=== PATIENT | male | born 1940 | race Caucasian/White ===

== ENCOUNTER 2017-07-01 11:54 | Emergency (ER) | payer MEDICARE, BC ==
[2017-07-01] MEDS ORDERED: Sodium Chloride 0.9% 10 ML Syringe FLUSH PRN (13:27)
[2017-07-01 13:47] VITALS: BP 140/61
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
== END 2017-07-01 13:40 ==
LOC: FB.ED 11:54
DX: S06.5X0A Traumatic subdural hemorrhage without loss of consciousness, initial encounter (principal); R00.1 Bradycardia, unspecified; E11.9 Type 2 diabetes mellitus without complications; I10 Essential (primary) hypertension; V87.8XXA Person injured in other specified noncollision transport accidents involving motor vehicle (traffic), initial encounter
CPT/HCPCS: 36415; 70450; 80053; 85025; 85610; 85730; 93005; 99285; J7050

== ENCOUNTER 2024-07-29 08:41 | Day surgery (SDC) | payer BC, MEDICARE ==
[2024-07-29] MEDS ORDERED: fentaNYL 100 MCG/2 ML SDV IV ONE (08:42)
[2024-07-29] MEDS ORDERED: Midazolam 1 MG/ML 2 ML SDV IV ONE (08:42)
[2024-07-29] MEDS ORDERED: Lactated Ringers 1,000 ML IV SCH (09:00)
[2024-07-29] MEDS ORDERED: Sodium Chloride 0.9% 10 ML Syringe FLUSH PRN (09:00)
[2024-07-29 10:06] LABS: GLUCOSE,POC 87 mg/dL (80-116)
[2024-07-29] MEDS: acetaZOLAMIDE 500 MG Cap.ER PO ONE (10:54)
[2024-07-29 12:36] VITALS: BP 117/57; PULSE 48
== END 2024-07-29 11:12 | disposition home or self-care (01) ==
LOC: FB.SDS 08:41
PROVIDERS: ATTEND Ophthalmology
DX: E11.36 Type 2 diabetes mellitus with diabetic cataract (principal); H26.9 Unspecified cataract; I10 Essential (primary) hypertension; E78.00 Pure hypercholesterolemia, unspecified; Z79.84 Long term (current) use of oral hypoglycemic drugs; Z79.899 Other long term (current) drug therapy; Z88.5 Allergy status to narcotic agent; Z87.891 Personal history of nicotine dependence
CPT/HCPCS: 00142; 82947; 99100; A9270-GY; J2250; J3010; V2632